=== PATIENT | female | born 1990 | race African-American/Black ===

== ENCOUNTER 2017-12-01 18:59 | Inpatient (IN) ==
[2017-12-01] MEDS ORDERED: SODIUM CHLORIDE 0.9% 500 ML IV STA (19:10)
[2017-12-01 19:40] LABS: Basophils % 0.3 % (0.0-0.8); Eosinophils # 0.1 10*3/uL (0.0-0.87); Hematocrit 21.9 VOL% (35.7-47.0); Hemoglobin 7.1 GM/DL (12.0-16.0); Immature Granulocytes % 0.3 %; Immature Granulocytes Absolute 0.03 #; Lymphocytes # 3.6 10*3/uL (1.4-4.0); Lymphocytes % 33.5 % (21.3-54.2); Mean Corpuscular HGB Conc 32.4 GM/DL (32-36); Mean Corpuscular Hemoglobin 19 PG (27-34); Mean Corpuscular Volume 57.8 FL (87-102); Mean Platelet Volume 9.9 FL (9.6-12.0); Monocytes # 0.8 10*3/uL (0.11-0.8); Monocytes % 7.6 % (1.7-12.7); Neutrophils # 6.2 10*3/uL (1.4-7.4); Neutrophils % 57.3 % (38.7-73.9); Platelet Count 334 T/CUMM (130-400); Red Blood Count 3.79 MC/CUMM (3.8-5.5); Red Cell Distribution Width 21.5 % (9.3-17.3); White Blood Count 10.9 T/CUMM (4-12)
[2017-12-01 20:01] LABS: INR 0.9
[2017-12-01 20:07] LABS: Alanine Aminotransferase 15 U/L (13-56); Albumin 3.2 G/DL (3.4-5.0); Alkaline Phosphatase 57 U/L (45-117); Aspartate Amino Transferase 12 U/L (0-37); Bilirubin,Total < 0.39 MG/DL (0.2-1.0); Blood Urea Nitrogen 4 MG/DL (7-18); Calcium 8.1 MG/DL (8.5-10.1); Glucose 105 MG/DL (74-106); Osmolality,Calculated 269.8 MOS/KG (273-304); Potassium 3.4 MMOL/L (3.5-5.1); Sodium 137 MMOL/L (136-145); Total Protein 7.1 G/DL (6.4-8.3)
[2017-12-01] MEDS ORDERED: POTASSIUM CHLORIDE 20 MEQ TABLET PO STA (20:12)
[2017-12-01 20:56] LABS: Amorphous Crystals,Urine Occasional /HPF (Few); Apearance,Urine CLEAR (Clear); Bacteria,Urine Moderate /HPF (Few); Bilirubin,Urine Negative (Negative); Blood, Urine Moderate mg/dL (Negative); Glucose,Urine (UA) Negative (Negative); Ketones,Urine Negative (Negative); Mucus,Urine Few /LPF (Occasional); Nitrite,Urine Positive (Negative); Protein,Urine Negative; RBC,Urine 1 /HPF (0-4); Squamous Epithelial Cell,Urine Occasional /HPF (0-10); Urine Color Yellow (Yellow); Urine Specific Gravity 1.011 (1.001-1.035); Urine Urobilinogen < 2.0 EU/DL (0.2-1.0); WBC,Urine 5 /HPF (0-6)
[2017-12-01] MEDS ORDERED: RHO(D) IMMUNE GLOBULIN 300 MCG SYRINGE IM STA (21:25)
[2017-12-01] MEDS ORDERED: SODIUM CHLORIDE 0.9% 1,000 ML IV SCH (22:34)
[2017-12-01] MEDS ORDERED: cefTRIAXone 1,000 MG in SODIUM CHLORIDE 0.9% 100 ML IV SCH (22:34)
[2017-12-01] MEDS ORDERED: ONDANSETRON 4 MG/2 ML VIAL IV PRN (22:34)
[2017-12-01] MEDS ORDERED: SODIUM CHLORIDE 0.9% 1,000 ML IV PRN (22:34)
[2017-12-01] MEDS ORDERED: ACETAMINOPHEN 325 MG TABLET PO PRN (22:34)
[2017-12-02 06:48] LABS: Hematocrit 23.8 VOL% (35.7-47.0)
[2017-12-02 07:17] LABS: Albumin 2.9 G/DL (3.4-5.0); Bilirubin,Total 0.8 MG/DL (0.2-1.0); Calcium 8.2 MG/DL (8.5-10.1); Osmolality,Calculated 274.4 MOS/KG (273-304); Potassium 4.3 MMOL/L (3.5-5.1); Total Protein 6.9 G/DL (6.4-8.3)
[2017-12-02] MEDS ORDERED: DOCOSAHEXANOIC ACID 200 MG PO SCH (09:00)
[2017-12-02] MEDS ORDERED: FERROUS SULFATE 325 MG TABLET PO SCH (09:00)
[2017-12-02 16:20] VITALS: BP 102/52
== END 2017-12-02 17:40 | disposition home or self-care (01) | DRG 563 ==
LOC: N.ED 18:59 → N.EDINP 21:26 → N.OB 22:01
PROVIDERS: ADMIT Obstetrics & Gynecology; ATTEND Obstetrics & Gynecology

== ENCOUNTER 2018-06-02 06:08 | Inpatient (IN) ==
[2018-06-02] MEDS ORDERED: ACETAMINOPHEN 325 MG TABLET PO PRN (06:31)
[2018-06-02] MEDS ORDERED: BUTORPHANOL 2 MG/ML VIAL IV PRN (06:31)
[2018-06-02] MEDS ORDERED: ONDANSETRON 4 MG/2 ML VIAL IV PRN (06:31)
[2018-06-02] MEDS ORDERED: MEPERIDINE 50 MG/1 ML VIAL IV PRN (06:31)
[2018-06-02 06:49] LABS: Basophils # 0.1 10*3/uL (0.0-0.2); Basophils % 0.3 % (0.0-0.8); Eosinophils # 0.2 10*3/uL (0.0-0.87); Hemoglobin 7.9 GM/DL (12.0-16.0); Immature Granulocytes % 2.2 %; Immature Granulocytes Absolute 0.36 #; Lymphocytes # 4.1 10*3/uL (1.4-4.0); Lymphocytes % 24.9 % (21.3-54.2); Mean Corpuscular HGB Conc 31.6 GM/DL (32-36); Mean Corpuscular Hemoglobin 21 PG (27-34); Mean Corpuscular Volume 66.7 FL (87-102); Mean Platelet Volume 9.1 FL (9.6-12.0); Monocytes # 1.3 10*3/uL (0.11-0.8); NRBC # 0.03 10*3/uL; Neutrophils # 10.4 10*3/uL (1.4-7.4); Neutrophils % 63.6 % (38.7-73.9); Platelet Count 485 T/CUMM (130-400); Red Blood Count 3.75 MC/CUMM (3.8-5.5); Red Cell Distribution Width 17.4 % (9.3-17.3); White Blood Count 16.3 T/CUMM (4-12)
[2018-06-02] MEDS ORDERED: LACTATED RINGERS 1,000 ML IV SCH ×2 (07:00→10:00)
[2018-06-02] MEDS: OXYTOCIN/LR 20 UNIT/1,000 ML BAG IV SCH ×2 (07:18→18:21)
[2018-06-02 07:32] LABS: Apearance,Urine CLOUDY (Clear); Bacteria,Urine Moderate /HPF (Few); Bilirubin,Urine Negative (Negative); Blood, Urine Moderate mg/dL (Negative); Glucose,Urine (UA) Negative (Negative); Ketones,Urine Negative (Negative); Mucus,Urine Many /LPF (Occasional); Nitrite,Urine Positive (Negative); Protein,Urine 100 MG/DL; RBC,Urine 25 /HPF (0-4); Squamous Epithelial Cell,Urine Occasional /HPF (0-10); Urine Color Yellow (Yellow); Urine Specific Gravity 1.021 (1.001-1.035); WBC,Urine 48 /HPF (0-6)
[2018-06-02] MEDS ORDERED: AMPICILLIN INJ 2,000 MG in SODIUM CHLORIDE 0.9% 100 ML IV ONE (08:03)
[2018-06-02] MEDS ORDERED: CITRIC ACID/SODIUM CITRATE 30 ML UDCUP PO ONE (09:58)
[2018-06-02] MEDS ORDERED: FAMOTIDINE 20 MG/2 ML VIAL IV ONE (09:58)
[2018-06-02] MEDS ORDERED: PROMETHAZINE 25 MG/1 ML VIAL IM ONE (09:58)
[2018-06-02] MEDS ORDERED: hydrOXYzine HCL 25 MG/1 ML VIAL IM PRN (09:58)
[2018-06-02] MEDS ORDERED: LACTATED RINGERS 1,000 ML IV ONE (09:58)
[2018-06-02] MEDS ORDERED: NALOXONE 0.4 MG/ML VIAL IV PRN (09:58)
[2018-06-02] MEDS ORDERED: ePHEDrine 50 MG/ML AMP IV PRN (09:58)
[2018-06-02] MEDS ORDERED: diphenhydrAMINE 50 MG/1 ML VIAL IV PRN ×2 (09:58)
[2018-06-02] MEDS ORDERED: fentaNYL 2 MCG/ROPIV 0.2% EPID 100 ML EPIDURAL SCH (10:00)
[2018-06-02] MEDS ORDERED: AMPICILLIN INJ 1,000 MG in SODIUM CHLORIDE 0.9% 100 ML IV SCH (12:00)
[2018-06-02 12:01] LABS: Apearance,Urine CLEAR (Clear); Bilirubin,Urine Negative (Negative); Blood, Urine Negative (Negative); Glucose,Urine (UA) Negative (Negative); Ketones,Urine Negative (Negative); Mucus,Urine Few /LPF (Occasional); Nitrite,Urine Positive (Negative); Protein,Urine 30 MG/DL; RBC,Urine 7 /HPF (0-4); Squamous Epithelial Cell,Urine Occasional /HPF (0-10); Urine Color Yellow (Yellow); Urine Specific Gravity 1.026 (1.001-1.035); Urine Urobilinogen < 2.0 EU/DL (0.2-1.0); WBC,Urine 21 /HPF (0-6)
[2018-06-02] MEDS ORDERED: miSOPROStol 200 MCG TABLET ONE (14:17)
[2018-06-02] MEDS ORDERED: LIDOCAINE 1% 50 ML VIAL ONE (14:17)
[2018-06-02 14:43] LABS: Cord Arterial Blood HCO3 21.5 MMOL/L
[2018-06-02 14:47] LABS: Cord Venous Blood HCO3 21.8 MMOL/L; Cord Venous Blood PCO2 39.5 MMHG; Cord Venous Blood PO2 31.1
[2018-06-02] MEDS ORDERED: IBUPROFEN 800 MG TABLET PO ONE (15:18)
[2018-06-02] MEDS ORDERED: ACETAMINOPHEN/CODEINE 300-30 MG TABLET PO PRN (17:28)
[2018-06-02] MEDS ORDERED: WITCH HAZEL PADS 100/JAR TOP PRN (17:28)
[2018-06-02] MEDS ORDERED: RHO(D) IMMUNE GLOBULIN 300 MCG SYRINGE IM ONE (17:28)
[2018-06-02] MEDS ORDERED: oxyCODONE/ACETAMINOPHEN 5-325 MG TABLET PO PRN (17:28)
[2018-06-02] MEDS ORDERED: BISACODYL 10 MG SUPP RECTAL PRN (17:28)
[2018-06-02] MEDS ORDERED: LANOLIN 50% CREAM 0.3 OZ TUBE TOP PRN (17:28)
[2018-06-02] MEDS ORDERED: BENZOCAINE 20%/MENTHOL 0.5% SPRAY 56 GM CAN TOP PRN (17:28)
[2018-06-02] MEDS ORDERED: DIPH/TET/ACEL PERT BOOSTER VACCINE 0.5 ML VIAL IM ONE (17:28)
[2018-06-02] MEDS ORDERED: MEASLES/MUMPS/RUBELLA VACCINE 0.5 ML VIAL SUBCUT ONE (17:28)
[2018-06-02] MEDS ORDERED: HYDROCORTISONE 2.5% RECTAL CREAM 30 GM TUBE TOP PRN (17:28)
[2018-06-02] MEDS ORDERED: MAGNESIUM HYDROXIDE SUSP 30 ML UDCUP PO PRN (18:09)
[2018-06-02] MEDS ORDERED: OXYTOCIN/LR 20 UNIT/1,000 ML BAG IV ONE (18:19)
[2018-06-02] MEDS: oxyCODONE/ACETAMINOPHEN 5-325 MG TABLET PO PRN (19:20)
[2018-06-02] MEDS: IBUPROFEN 800 MG TABLET PO PRN (19:30)
[2018-06-02] MEDS: FERROUS SULFATE 325 MG TABLET PO SCH (20:50)
[2018-06-02] MEDS: DOCUSATE SODIUM 100 MG CAPSULE PO SCH (20:50)
[2018-06-03] MEDS: IBUPROFEN 800 MG TABLET PO PRN (01:09)
[2018-06-03] MEDS: oxyCODONE/ACETAMINOPHEN 5-325 MG TABLET PO PRN (01:09)
[2018-06-03 06:26] LABS: Basophils % 0.1 % (0.0-0.8); Eosinophils # 0.1 10*3/uL (0.0-0.87); Eosinophils % 0.2 % (0.00-10.9); Immature Granulocytes % 1.6 %; Immature Granulocytes Absolute 0.34 #; Lymphocytes # 3.5 10*3/uL (1.4-4.0); Lymphocytes % 16.3 % (21.3-54.2); Mean Corpuscular HGB Conc 31.9 GM/DL (32-36); Mean Corpuscular Hemoglobin 21 PG (27-34); Mean Platelet Volume 9.6 FL (9.6-12.0); Monocytes # 1.6 10*3/uL (0.11-0.8); Monocytes % 7.4 % (1.7-12.7); NRBC # 0.02 10*3/uL; Neutrophils # 16.1 10*3/uL (1.4-7.4); Neutrophils % 74.4 % (38.7-73.9); Platelet Count 379 T/CUMM (130-400); Red Blood Count 2.09 MC/CUMM (3.8-5.5); Red Cell Distribution Width 17.3 % (9.3-17.3); White Blood Count 21.7 T/CUMM (4-12)
[2018-06-03 06:31] LABS: Hematocrit 13.8 VOL% (35.7-47.0); Hemoglobin 4.4 GM/DL (12.0-16.0)
[2018-06-03 06:50] LABS: Platelet Estimate Normal; Polychromasia Few
[2018-06-03 07:54] LABS: Hemoglobin 4.7 GM/DL (12.0-16.0)
[2018-06-03 07:55] LABS: Hematocrit 14.8 VOL% (35.7-47.0)
[2018-06-03] MEDS ORDERED: FUROSEMIDE 20 MG/2 ML VIAL IV PRN (07:57)
[2018-06-03] MEDS ORDERED: SODIUM CHLORIDE 0.9% 1,000 ML IV PRN (07:57)
[2018-06-03] MEDS: DOCUSATE SODIUM 100 MG CAPSULE PO SCH ×2 (08:47→21:12)
[2018-06-03] MEDS: FERROUS SULFATE 325 MG TABLET PO SCH ×3 (08:47→21:12)
[2018-06-03] MEDS ORDERED: RHO(D) IMMUNE GLOBULIN 300 MCG SYRINGE IM ONE (16:35)
[2018-06-03 18:10] LABS: Hematocrit 26.4 VOL% (35.7-47.0)
[2018-06-03 18:12] LABS: Hemoglobin 8.6 GM/DL (12.0-16.0)
[2018-06-03] MEDS: CIPROFLOXACIN 500 MG TABLET PO SCH (21:12)
[2018-06-04 07:36] VITALS: BP 111/71
[2018-06-04] MEDS: FERROUS SULFATE 325 MG TABLET PO SCH (08:41)
[2018-06-04] MEDS: DOCUSATE SODIUM 100 MG CAPSULE PO SCH (08:41)
[2018-06-04] MEDS: CIPROFLOXACIN 500 MG TABLET PO SCH (08:41)
== END 2018-06-04 13:45 | disposition home or self-care (01) | DRG 560 ==
LOC: N.LDOUT 06:08 → N.LD 06:11 → N.OB 17:19
PROVIDERS: ADMIT Obstetrics & Gynecology; ATTEND Obstetrics & Gynecology

== ENCOUNTER 2019-08-16 05:01 | Inpatient (IN) ==
[2019-08-16] MEDS ORDERED: ONDANSETRON 4 MG/2 ML VIAL IV PRN ×2 (05:11→14:29)
[2019-08-16] MEDS ORDERED: BUTORPHANOL 2 MG/ML VIAL IV PRN (05:11)
[2019-08-16] MEDS ORDERED: MEPERIDINE 50 MG/1 ML VIAL IV PRN (05:11)
[2019-08-16] MEDS ORDERED: OXYTOCIN/LR 20 UNIT/1,000 ML BAG IV SCH (05:30)
[2019-08-16] MEDS ORDERED: LACTATED RINGERS 1,000 ML IV SCH (05:30)
[2019-08-16 05:51] LABS: Basophils # 0.1 10*3/uL (0.0-0.2); Basophils % 0.3 % (0.0-0.8); Eosinophils # 0.2 10*3/uL (0.0-0.87); Hematocrit 26.7 VOL% (35.7-47.0); Hemoglobin 8.5 GM/DL (12.0-16.0); Immature Granulocytes % 1.8 %; Immature Granulocytes Absolute 0.27 #; Lymphocytes # 3.2 10*3/uL (1.4-4.0); Lymphocytes % 20.7 % (21.3-54.2); Mean Corpuscular HGB Conc 31.8 GM/DL (32-36); Mean Corpuscular Volume 68.8 FL (87-102); Mean Platelet Volume 9.4 FL (9.6-12.0); Monocytes % 6.8 % (1.7-12.7); Neutrophils % 69.4 % (38.7-73.9); Platelet Count 472 T/CUMM (130-400); Red Blood Count 3.88 MC/CUMM (3.8-5.5); Red Cell Distribution Width 16.7 % (9.3-17.3); White Blood Count 15.2 T/CUMM (4-12)
[2019-08-16 06:04] LABS: Albumin 2.5 G/DL (3.4-5.0); Bilirubin,Total 0.4 MG/DL (0.2-1.0); Calcium 9.2 MG/DL (8.5-10.1); Osmolality,Calculated 269.2 MOS/KG (273-304); Total Protein 7.6 G/DL (6.4-8.3)
[2019-08-16] MEDS ORDERED: CITRIC ACID/SODIUM CITRATE 30 ML UDCUP PO ONE (07:57)
[2019-08-16] MEDS ORDERED: diphenhydrAMINE 50 MG/1 ML VIAL IV PRN ×2 (07:57)
[2019-08-16] MEDS ORDERED: PROMETHAZINE 25 MG/1 ML VIAL IM ONE (07:57)
[2019-08-16] MEDS ORDERED: NALOXONE 0.4 MG/ML VIAL IV PRN (07:57)
[2019-08-16] MEDS ORDERED: hydrOXYzine HCL 25 MG/1 ML VIAL IM PRN (07:57)
[2019-08-16] MEDS ORDERED: LACTATED RINGERS 1,000 ML IV ONE (07:57)
[2019-08-16] MEDS ORDERED: ePHEDrine 50 MG/ML AMP IV PRN (07:57)
[2019-08-16] MEDS ORDERED: FAMOTIDINE 20 MG/2 ML VIAL IV ONE (07:57)
[2019-08-16] MEDS ORDERED: ONDANSETRON 4 MG/2 ML VIAL IV ONE (07:57)
[2019-08-16] MEDS ORDERED: fentaNYL 2 MCG/ROPIV 0.2% EPID 100 ML EPIDURAL SCH (08:00)
[2019-08-16] MEDS ORDERED: OXYTOCIN/LR 20 UNIT/1,000 ML BAG IV ONE ×3 (10:17→16:20)
[2019-08-16] MEDS ORDERED: miSOPROStoL 200 MCG TABLET ONE (10:17)
[2019-08-16] MEDS ORDERED: TRANEXAMIC ACID 1,000 MG/10 ML VIAL ONE (10:17)
[2019-08-16] MEDS ORDERED: CARBOPROST TROMETHAMINE 250 MCG/ML AMP IM ONE (10:18)
[2019-08-16] MEDS ORDERED: METHYLERGONOVINE 0.2 MG/1 ML AMP ONE (10:18)
[2019-08-16 11:18] LABS: Apearance,Urine CLEAR (Clear); Bacteria,Urine Many /HPF (Few); Bilirubin,Urine Negative (Negative); Blood, Urine Negative (Negative); Glucose,Urine (UA) Negative (Negative); Ketones,Urine Negative (Negative); Mucus,Urine Occasional /LPF (Occasional); Nitrite,Urine Negative (Negative); Protein,Urine Negative; RBC,Urine 3 /HPF (0-4); Squamous Epithelial Cell,Urine Occasional /HPF (0-10); Urine Color Yellow (Yellow); Urine Specific Gravity 1.013 (1.001-1.035); WBC,Urine 6 /HPF (0-6)
[2019-08-16] MEDS ORDERED: BISACODYL 10 MG SUPP RECTAL PRN (14:29)
[2019-08-16] MEDS ORDERED: WITCH HAZEL PADS 100/JAR TOP PRN (14:29)
[2019-08-16] MEDS ORDERED: oxyCODONE/ACETAMINOPHEN 5-325 MG TABLET PO PRN ×3 (14:29→16:23)
[2019-08-16] MEDS ORDERED: BENZOCAINE 20%/MENTHOL 0.5% SPRAY 56 GM CAN TOP PRN (14:29)
[2019-08-16] MEDS ORDERED: RHO(D) IMMUNE GLOBULIN 300 MCG SYRINGE IM ONE (14:29)
[2019-08-16] MEDS ORDERED: LANOLIN 50% CREAM 0.3 OZ TUBE TOP PRN (14:29)
[2019-08-16] MEDS ORDERED: ACETAMINOPHEN 325 MG TABLET PO PRN ×2 (14:29→16:20)
[2019-08-16] MEDS ORDERED: HYDROCORTISONE 2.5% RECTAL CREAM 30 GM TUBE TOP PRN (14:29)
[2019-08-16] MEDS ORDERED: DIPH/TET/ACEL PERT BOOSTER VACCINE 0.5 ML VIAL IM ONE (14:29)
[2019-08-16] MEDS ORDERED: IBUPROFEN 800 MG TABLET PO PRN (14:29)
[2019-08-16] MEDS ORDERED: MEASLES/MUMPS/RUBELLA VACCINE 0.5 ML VIAL SUBCUT ONE (16:20)
[2019-08-16] MEDS: oxyCODONE/ACETAMINOPHEN 5-325 MG TABLET PO PRN (16:54)
[2019-08-16] MEDS ORDERED: DOCUSATE SODIUM 100 MG CAPSULE PO SCH (21:00)
[2019-08-16] MEDS: FERROUS SULFATE 325 MG TABLET PO SCH (21:57)
[2019-08-16] MEDS: DOCUSATE SODIUM 100 MG CAPSULE PO SCH (21:57)
[2019-08-16] MEDS: IBUPROFEN 800 MG TABLET PO PRN (21:57)
[2019-08-17] MEDS: oxyCODONE/ACETAMINOPHEN 5-325 MG TABLET PO PRN (05:51)
[2019-08-17 06:51] LABS: Basophils # 0.1 10*3/uL (0.0-0.2); Basophils % 0.3 % (0.0-0.8); Eosinophils # 0.2 10*3/uL (0.0-0.87); Eosinophils % 1.2 % (0.00-10.9); Hematocrit 23.6 VOL% (35.7-47.0); Hemoglobin 7.9 GM/DL (12.0-16.0); Immature Granulocytes % 1.2 %; Immature Granulocytes Absolute 0.19 #; Lymphocytes # 3.6 10*3/uL (1.4-4.0); Mean Corpuscular HGB Conc 33.5 GM/DL (32-36); Mean Corpuscular Volume 66.9 FL (87-102); Mean Platelet Volume 9.7 FL (9.6-12.0); Neutrophils % 69.3 % (38.7-73.9); Platelet Count 421 T/CUMM (130-400); Red Blood Count 3.53 MC/CUMM (3.8-5.5); Red Cell Distribution Width 16.7 % (9.3-17.3); White Blood Count 16.2 T/CUMM (4-12)
[2019-08-17 08:08] VITALS: BP 116/75
[2019-08-17] MEDS ORDERED: RHO(D) IMMUNE GLOBULIN 300 MCG SYRINGE IM ONE (08:20)
[2019-08-17] MEDS: DOCUSATE SODIUM 100 MG CAPSULE PO SCH (09:00)
[2019-08-17] MEDS: FERROUS SULFATE 325 MG TABLET PO SCH (09:00)
[2019-08-17] MEDS: IBUPROFEN 800 MG TABLET PO PRN (13:22)
== END 2019-08-17 18:10 | disposition home or self-care (01) | DRG 560 ==
LOC: N.LDOUT 05:01 → N.LD 05:04 → N.OB 15:46
PROVIDERS: ADMIT Obstetrics & Gynecology; ATTEND Obstetrics & Gynecology